=== PATIENT | female | born 1955 | race Caucasian/White ===

== ENCOUNTER → 2018-07-26 | Outpatient (CLI) | payer OTHER | END | disposition home or self-care (01) | LOC: MA 10:53 | PROC: BH02ZZZ Plain Radiography of Bilateral Breasts (ICD-10-PCS; principal; 2018-07-26) | DX: Z12.31 Encounter for screening mammogram for malignant neoplasm of breast (principal) | CPT/HCPCS: 77067 ==

== ENCOUNTER → 2018-08-01 | Outpatient (CLI) | payer OTHER ==
[2018-08-01 08:16] LABS: BASOPHIL % 0.5 % (0-2); PLATELET COUNT 209 x10^3mcL (130-400); RED CELL DISTRIBUTION WIDTH 12.6 % (11.5-14.5)
[2018-08-01 09:06] LABS: ALBUMIN 3.9 g/dL (3.4-5.0); ALKALINE PHOSPHATASE 93 U/L (46-116); ALT/SGPT 29 U/L (14-59); AST/SGOT 22 U/L (15-37); BILIRUBIN TOTAL 0.5 mg/dL (0.20-1.00); CALCIUM 9.2 mg/dL (8.5-10.1); CARBON DIOXIDE 27.4 mmol/L (21-32); CHLORIDE SERUM 106 mmol/L (98-107); CREATININE SERUM 0.8 mg/dL (0.6-1.0); GFR1 > 60 mL/min; GLUCOSE SERUM 112 mg/dL (74-106); HDL CHOLESTEROL 44 mg/dL (40-60); SODIUM SERUM 143 mmol/L (136-145); TOTAL PROTEIN, SERUM 7.4 g/dL (6.4-8.2)
[2018-08-01 09:18] LABS: CHOLESTEROL 235 mg/dL (<200); CHOLESTEROL/HDL RATIO 5.3; TRIGLYCERIDES 217 mg/dL (<150)
== END | disposition home or self-care (01) ==
LOC: LB 07:50
PROVIDERS: Internal Medicine
DX: Z00.00 Encounter for general adult medical examination without abnormal findings (principal)

== ENCOUNTER → 2018-08-07 | Outpatient (CLI) | payer OTHER | END | disposition home or self-care (01) | LOC: LB 17:09 | DX: E11.9 Type 2 diabetes mellitus without complications (principal) ==

== ENCOUNTER 2018-08-13 13:33 | Emergency (ER) | payer OTHER ==
[~2018-08-13] VITALS: Ht 157.5 cm; Wt 78.0 kg
[2018-08-13 13:37] VITALS: Ht 157.5 cm; Wt 78.0 kg
[2018-08-13 15:37] VITALS: BP 125/82
== END 2018-08-13 15:37 | disposition home or self-care (01) ==
LOC: ED 13:33
DX: S52.122A Displaced fracture of head of left radius, initial encounter for closed fracture (principal); S63.502A Unspecified sprain of left wrist, initial encounter; S53.401A Unspecified sprain of right elbow, initial encounter; S20.212A Contusion of left front wall of thorax, initial encounter; S70.02XA Contusion of left hip, initial encounter; S09.8XXA Other specified injuries of head, initial encounter; Z88.0 Allergy status to penicillin; Z98.890 Other specified postprocedural states; W01.0XXA Fall on same level from slipping, tripping and stumbling without subsequent striking against object, initial encounter; Y93.89 Activity, other specified; Y92.89 Other specified places as the place of occurrence of the external cause; Y99.8 Other external cause status
CPT/HCPCS: J2270; Q0162

== ENCOUNTER → 2018-08-21 | Outpatient (CLI) | payer OTHER | END | disposition home or self-care (01) | LOC: RD 17:43 | DX: S52.125A Nondisplaced fracture of head of left radius, initial encounter for closed fracture (principal); M25.552 Pain in left hip; W18.30XA Fall on same level, unspecified, initial encounter; Y92.9 Unspecified place or not applicable ==

== ENCOUNTER → 2018-08-22 | Outpatient (CLI) | payer OTHER | END | disposition home or self-care (01) | LOC: MA 13:56 | PROC: BH01ZZZ Plain Radiography of Left Breast (ICD-10-PCS; principal; 2018-08-22) | DX: R92.8 Other abnormal and inconclusive findings on diagnostic imaging of breast (principal) | CPT/HCPCS: 77065 ==

== ENCOUNTER 2018-09-27 06:21 | Day surgery (SDC) | payer OTHER ==
[~2018-09-27] VITALS: Ht 160 cm; Wt 78.0 kg
[2018-09-27 06:34] VITALS: BP 123/85
[2018-09-27 10:15] VITALS: BP 137/77
== END 2018-09-27 11:15 | disposition home or self-care (01) ==
LOC: DS 06:21 → GI 07:30 → OR 07:30 → DS 11:15
PROVIDERS: Internal Medicine Gastroenterology
PROC: 0DBP8ZZ Excision of Rectum, Via Natural or Artificial Opening Endoscopic (ICD-10-PCS; principal; 2018-09-27 07:30)
PROC: 0DB68ZZ Excision of Stomach, Via Natural or Artificial Opening Endoscopic (ICD-10-PCS; 2018-09-27 07:30)
PROC: 0DB68ZX Excision of Stomach, Via Natural or Artificial Opening Endoscopic, Diagnostic (ICD-10-PCS; 2018-09-27 07:30)
PROC: 0D758ZZ Dilation of Esophagus, Via Natural or Artificial Opening Endoscopic (ICD-10-PCS; 2018-09-27 07:30)
DX: Z12.11 Encounter for screening for malignant neoplasm of colon (principal); D12.8 Benign neoplasm of rectum; K66.0 Peritoneal adhesions (postprocedural) (postinfection); R13.10 Dysphagia, unspecified; K31.7 Polyp of stomach and duodenum; K21.9 Gastro-esophageal reflux disease without esophagitis; M79.7 Fibromyalgia; Z86.010 Personal history of colon polyps; Z68.32 Body mass index [BMI] 32.0-32.9, adult
CPT/HCPCS: 43235; 45378; J1200; J1610; J2250; J2310; J3010; J3490

== ENCOUNTER 2018-10-24 17:24 | Emergency (ER) | payer OTHER ==
[~2018-10-24] VITALS: Ht 157.5 cm; Wt 80.3 kg
[2018-10-24 17:42] VITALS: Ht 157.5 cm; Wt 80.3 kg
[2018-10-24 19:19] VITALS: BP 125/81
== END 2018-10-24 19:19 | disposition home or self-care (01) ==
LOC: ED 17:24
DX: S92.512A Displaced fracture of proximal phalanx of left lesser toe(s), initial encounter for closed fracture (principal); G43.909 Migraine, unspecified, not intractable, without status migrainosus; Z88.8 Allergy status to other drugs, medicaments and biological substances; W20.8XXA Other cause of strike by thrown, projected or falling object, initial encounter; Y93.89 Activity, other specified; Y92.89 Other specified places as the place of occurrence of the external cause; Y99.8 Other external cause status

== ENCOUNTER → 2019-07-04 | Outpatient (CLI) | payer OTHER | END | disposition home or self-care (01) | LOC: RD 15:00 | PROC: BH47ZZZ Ultrasonography of Upper Extremity (ICD-10-PCS; principal; 2019-07-04) | PROC: BH48ZZZ Ultrasonography of Lower Extremity (ICD-10-PCS; 2019-07-04) | DX: D17.9 Benign lipomatous neoplasm, unspecified (principal) ==

== ENCOUNTER → 2019-07-15 | Outpatient (CLI) | payer OTHER ==
[2019-07-15 10:26] LABS: CALCIUM 9.4 mg/dL (8.5-10.1); CARBON DIOXIDE 30.8 mmol/L (21-32); CHLORIDE SERUM 105 mmol/L (98-107); CHOLESTEROL 242 mg/dL (<200); CREATININE SERUM 0.7 mg/dL (0.6-1.0); GFR1 > 60 mL/min; GLUCOSE SERUM 115 mg/dL (74-106); HDL CHOLESTEROL 48 mg/dL (40-60); POTASSIUM SERUM 4.3 mmol/L (3.5-5.1); SODIUM SERUM 144 mmol/L (136-145); TRIGLYCERIDES 221 mg/dL (<150)
[2019-07-15 10:28] LABS: BASOPHIL % 0.4 % (0-2); PLATELET COUNT 219 x10^3mcL (130-400); RED CELL DISTRIBUTION WIDTH 12.7 % (11.5-14.5)
== END | disposition home or self-care (01) ==
LOC: LB 09:47
PROVIDERS: Student in an Organized Health Care Education/Training Program
DX: E78.1 Pure hyperglyceridemia (principal)

== ENCOUNTER → 2019-09-19 | Outpatient (CLI) | payer OTHER ==
[2019-09-19 08:39] LABS: ALKALINE PHOSPHATASE 78 U/L (46-116); ALT/SGPT 28 U/L (14-59); AST/SGOT 20 U/L (15-37); BILIRUBIN TOTAL 0.6 mg/dL (0.20-1.00); CALCIUM 9.3 mg/dL (8.5-10.1); CARBON DIOXIDE 30.5 mmol/L (21-32); CHLORIDE SERUM 106 mmol/L (98-107); CREATININE SERUM 0.7 mg/dL (0.6-1.0); GFR1 > 60 mL/min; GLUCOSE SERUM 115 mg/dL (74-106); HDL CHOLESTEROL 49 mg/dL (40-60); POTASSIUM SERUM 3.8 mmol/L (3.5-5.1); SODIUM SERUM 146 mmol/L (136-145); TOTAL PROTEIN, SERUM 7.4 g/dL (6.4-8.2)
[2019-09-19 08:40] LABS: CHOLESTEROL 245 mg/dL (<200); TRIGLYCERIDES 211 mg/dL (<150)
[2019-09-19 08:42] LABS: BILIRUBIN DIRECT 0.13 mg/dL (0.0-0.2); BILIRUBIN TOTAL 0.6 mg/dL (0.20-1.00)
[2019-09-19 13:15] LABS: BASOPHIL % 0.4 % (0-2); PLATELET COUNT 211 x10^3mcL (130-400)
== END | disposition home or self-care (01) ==
LOC: LB 07:18
PROVIDERS: Internal Medicine
DX: Z00.00 Encounter for general adult medical examination without abnormal findings (principal)

== ENCOUNTER → 2019-09-26 | Outpatient (CLI) | payer OTHER | END | disposition home or self-care (01) | LOC: US 08:39 | PROC: BW40ZZZ Ultrasonography of Abdomen (ICD-10-PCS; principal; 2019-09-26) | DX: R10.9 Unspecified abdominal pain (principal) ==

== ENCOUNTER → 2019-11-07 | Outpatient (CLI) | payer OTHER | END | disposition home or self-care (01) | LOC: CT 09:47 | PROC: BW21ZZZ Computerized Tomography (CT Scan) of Abdomen and Pelvis (ICD-10-PCS; principal; 2019-11-07) | DX: N20.0 Calculus of kidney (principal) ==